=== PATIENT | female | born 1975 | race Caucasian/White ===

== ENCOUNTER 2020-01-23 11:52 | Emergency (ER) | payer BC, OTHER | END 2020-01-23 12:30 | disposition home or self-care (01) | LOC: JVIRT 11:52 | DX: Z03.818 Encounter for observation for suspected exposure to other biological agents ruled out (principal) | CPT/HCPCS: C9803; Q3014-GT; U0003 ==

== ENCOUNTER 2021-04-30 22:58 | Emergency (ER) | payer BC, OTHER ==
[2021-04-30 23:08] VITALS: BP 117/69; PULSE 60; TEMP 98.4; BMI 21.2
== END 2021-04-30 23:18 | disposition home or self-care (01) ==
LOC: FER 22:58
DX: S70.12XA Contusion of left thigh, initial encounter (principal); Y99.9 Unspecified external cause status
CPT/HCPCS: 99281-25